=== PATIENT | male | born 1985 | race Caucasian/White ===

== ENCOUNTER 2022-07-26 19:02 | Emergency (ER) | payer BC, MEDICAID ==
[~2022-07-26] VITALS: Ht 188 cm; Wt 115.0 kg
[2022-07-26 19:33] VITALS: BP 153/96
[2022-07-26] MEDS ORDERED: ACETAMINOPHEN 325MG TABLET PO ONE (22:15)
[2022-07-26] MEDS ORDERED: LIDOCAINE 5% PATCH TOP SCH (22:15)
== END 2022-07-27 01:29 | disposition left against medical advice (07) ==
LOC: ER 19:02
DX: M54.9 Dorsalgia, unspecified (principal); E78.00 Pure hypercholesterolemia, unspecified; I10 Essential (primary) hypertension; Z87.891 Personal history of nicotine dependence
CPT/HCPCS: 99281